=== PATIENT | male | born 1985 | race Caucasian/White ===

== ENCOUNTER 2025-01-10 19:30 | Emergency (ER) | payer OTHER, SELFPAY ==
[2025-01-10 20:02] VITALS: BP 128/89; PULSE 85; RESP 16; TEMP 37.2; O2SAT 98; BMI 22.8
[2025-01-10 20:42] VITALS: BP 110/56; PULSE 77; O2SAT 99
[2025-01-10 20:47] LABS: Basophils % 0.6 %; Eosinophils % 0.3 %; Hematocrit 40.4 % (37-53); Lymphocytes # 1.4 10^3/uL (0.8-4.8); Lymphocytes % 20.7 %; Mean Corpuscular HGB Conc 33.9 g/dL (30-55); Mean Corpuscular Hemoglobin 30.2 pg (27-33); Mean Corpuscular Volume 89.2 fl (82-101); Mean Platelet Volume 10.2 fL (7.4-10.4); Monocytes # 0.5 10^3/uL (0.2-0.9); Monocytes % 7.5 %; Neutrophils # 4.63 10^3/uL (1.8-7.7); Neutrophils % 70.6 %; Nucleated Red Blood Cells % 0 %; Platelet Count 199 10^3/cmm (157-399); Red Blood Count 4.53 10^6/uL (3.85-5.65); Red Cell Distribution Width 11.8 % (12.1-15.1); White Blood Count 6.56 10^3/uL (3.29-11.43)
[2025-01-10 21:02] LABS: Alanine Aminotransferase 18 U/L (0-41); Albumin Level 4.2 g/dL (3.5-5.2); Alkaline Phosphatase 68 U/L (40-130); Aspartate Amino Transferase 20 U/L (0-40); Blood Urea Nitrogen 13 mg/dL (6-20); C Reactive Protein 6.4 mg/L (0.0-4.9); Calcium 9.1 mg/dL (8.5-10.5); Carbon Dioxide 22 mmol/L (22-29); Chloride 105 mmol/L (98-107); Creatinine Clr Calc Pharmacy 87.9049; Globulin 3.3 g/dL (1.3-4.6); Glomerular Filtration Rate 74.9 mL/min (90-130); Glucose 100 mg/dL (65-115); Lipase 15 U/L (13-60); Osmolality Calculated 288 mOsm/kg (285-295); Sodium 139 mmol/L (136-145); Total Bilirubin 0.3 mg/dL (0.15-1.2); Total Protein 7.5 g/dL (6.6-8.7)
[2025-01-10 21:06] LABS: Bilirubin Urine Negative (Negative); Blood Urine Negative (Negative); Glucose Urine UA Negative (Normal); Ketones Urine Negative (Negative); Leukocyte Esterase Urine Negative (Negative); Nitrate Urine Negative (Negative); Protein Urine Negative (Negative); Specific Gravity, Urine 1.013 (1.005-1.030); Urine Appearance Clear (CLEAR); Urine Color Yellow (Yellow); pH Urine 7.5 (5-7)
--- NOTE | 2025-01-10 21:06 | CTR_ITS ---
PROCEDURE INFORMATION: Exam: CT Abdomen And Pelvis With Contrast Exam date and time: 01/10/2025 9:12 PM Age: 39 years old Clinical indication: Abdominal pain; C/O periumbilical/rlq pain with fever; Additional info: Periumbilical/rlq/r mid abd pain + subjective fever, ttp rlq TECHNIQUE: Imaging protocol: Computed tomography of the abdomen and pelvis with contrast. Radiation optimization: All CT scans at this facility use at least one of these dose optimization techniques: automated exposure control; mA and/or kV adjustment per patient size (includes targeted exams where dose is matched to clinical indication); or iterative reconstruction. Contrast material: OMNI 350; Contrast volume: 100 ml; Contrast route: INTRAVENOUS (IV); COMPARISON: No relevant prior studies available. RADIATION DOSE METRICS: Total DLP (mGy-cm): 424.31 FINDINGS: Lungs: Visualized lung bases are clear. Liver: The liver is unremarkable. Gallbladder and biliary ducts: The gallbladder is unremarkable. No biliary ductal dilatation. Pancreas: The pancreas is unremarkable. Spleen: The spleen is unremarkable. Adrenal glands: The adrenal glands are unremarkable. Kidneys and ureters: Multiple subcentimeter bilateral renal cysts. No hydronephrosis or hydroureter. No large renal stones. Stomach and bowel: No evidence of bowel obstruction. Multiple loops of small bowel are fluid-filled and nondilated. Appendix: The appendix is normal. Intraperitoneal space: No significant free fluid in the abdomen or pelvis. No extraluminal free air. Vasculature: Abdominal aorta and its major branches are within normal limits. No abdominal aortic aneurysm. Lymph nodes: No distinct pathologically enlarged lymphadenopathy. Urinary bladder: Mild thickening of the urinary bladder wall. Reproductive: Visualized reproductive structures are within normal limits. Bones/joints: No acute osseous findings. Soft tissues: Visualized superficial soft tissues are within normal limits. CT/CT abdomen pelvis w con* [id number] IMPRESSION: 1. Mild thickening of the urinary bladder wall. This may be incidental secondary to low-level of distension. Alternatively, this may indicate cystitis. 2. Multiple loops of small bowel are fluid-filled and nondilated. This is likely incidental but can be seen with mild nonspecific enteritis. COMMENTS: Consistent with the [employer]'s Incidental Findings Committee white paper (J Am Nano Radiol 2018): Any incidental renal lesion less than 1 cm or classified as too small to characterize, or any incidental cystic renal lesion characterized as simple-appearing, is likely benign. No follow-up imaging is recommended for these lesions per consensus recommendations based on imaging criteria.
--- NOTE | 2025-01-10 21:07 | ED_ITS ---
HPI - Abdominal Pain 2 General: Chief Complaint: Abdominal Pain Stated Complaint: fever, nausea, R side pain Time Seen by Provider: 01/10/25 20:11 History of Present Illness: 39-year-old male reports he has been sic k for about 8 or 9 days. He started having abdominal discomfort over the last 24 hours. This morning he had a sharp abdominal pain which he reports was actually in the right upper quadrant and moving down towards the right lower quadrant. He also reports some dysuria. He has a history of kidney stones but states he has not had any flank pain or hematuria. Patient explains that he has been sick all week with subjective fever, chills, sweats, runny nose, anorexia, headache. His work would not let him come back unless he was checked for COVID or flu. Then, with the abdominal pain, he started to get concerned there may be something else going on. He has not had any bowel movements in 2 days because he has not been eating or drinking much. Associated Symptoms: Reports chills, dysuria, fever(s) and nausea; Denies coffee ground emesis, constipation, diarrhea, hematemesis, syncope and vomiting Related Data Previous Rx's ?Medication ?Instructions ?Recorded dicyclomine 20 mg tablet 20 mg PO QID PRN abdominal p ain 01/10/25 #20 tabs ondansetron 4 mg disintegrating 4 mg PO Q6H PRN nausea and 01/10/25 tablet vomiting #14 tabs Allergies Allergy/AdvReac Type Severity Reaction Status Date / Time No Known Drug Allergies Allergy Unknown Verified 01/10/25 20:08 Review of Systems 2 General: Reports: 10 or more systems reviewed and unremarkable except in HPI and below Const: Reports: fever(s), chills, body aches, change in appetite and fatigue Eyes: Denies: change in vision ENMT: Denies: throat pain Card: Denies: chest pain, edema or syncope Resp: Denies: dyspnea, productive cough or hemoptysis GI: Reports: abdominal pain and nausea; Denies: vomiting, hematemesis, coffee ground emesis, diarrhea or constipation : Reports: dysuria; Denies: flank pain, difficulty urinating, urinary frequency, urinary urgency, urinary hesitancy, urinary dribbling, genital pain, genital lesions, testicular pain, testicular mass or scrotal swelling Musc: Reports: back pain (myalgias); Denies: neck pain, extremity pain or extremity swelling Skin/Breast: Denies: rash or erythema Neuro: Denies: headache(s), numbness in extremities, weakness in extremities, lack of coordination or difficulty walking Physical Exam 2 Const: COMMON NORMALS: no limitations, alert and well nourished EXAM LIMITATIONS: no altered mental status HENMT: COMMON NORMALS: normocephalic, atraumatic, external ears normal and Normal external nose present HEAD & SCALP: normocephalic and atraumatic N OSE: Normal external nose present EXTERNAL EAR: Yes external ears normal M OUTH: no muffled voice OTHER: + rhinorrhea and congestion Eye: COMMON NORMALS: EOMs intact bilaterally, conjunctivae normal and no scleral icterus CONJUNCTIVA: Yes conjunctivae normal Neck/C-Spine: COMMON NORMALS: no JVD GENERAL: Yes normal visual inspection and Yes trachea midline Resp: COMMON NORMALS: normal respiratory effort, No use of accessory muscles and clear to auscultation bilaterally AUSCULTATION: clear to auscultation bilaterally Cardio: COMMON NORMALS: no JVD, regular rate and regular rhythm RATE: r egular rate RHYTHM: regular rhythm GI: COMMON NORMALS: Soft to palpation and no masses PALPATION: Yes Soft to palpation, Yes Tenderness to palpation present (GI) Details: RLQ and other (periumbilical, RLQ; + heel tap), Yes Guarding due to palpation present (GI), No Palpable mass present, No Pulsatile mass present and No Ascites present Back/Pelvis: OTHER: Mild right CVA percussion ttp w/o guarding Extremity: COMMON NORMALS: normal to inspection Neuro: COMMON NORMALS: moves all extremities, no focal motor deficits and no sensory deficits noted SENSORIUM/ORIENTATION: Yes alert SPEECH: speech normal Psych: COMMON NORMALS: mental status grossly normal, Normal thought process present, cooperative, normal affect and speech normal SPEECH: Yes normal speech THOUGHT PROCESS: Normal thought process present Skin: COMMON NORMALS: no rashes or lesions noted, turgor normal and no jaundice GENERAL SKIN EXAM: no rashes or lesions noted and turgor normal Course 2 Vital Signs: Vital signs: Vital Signs Temperature 98.9 F 01/10/25 20:02 Pulse Rate 55 L 01/10/25 21:37 Respiratory Rate 16 01/10/25 21:29 Blood Pressure 114/68 03/23/25 21:37 Pulse Oximetry 99 01/10/25 21:37 Oxygen Delivery Me thod Room Air 01/10/25 21:37 MDM - Abdominal Pain Medical Decision Making 1. Patient has had anorexia, subjective fever, chills, runny nose, myalgias, headache. This sounds most likely to be a viral syndrome. 2. Patient has new right mid, periumbilical, right lower quadrant discomfort. He did have a positive heeltap sign and tenderness to palpation in the right lower quadrant. Patient also endorsed mild dysuria. The differential diagnosis would include appendicitis, diverticulitis, colitis, ascending UTI, pyelonephritis, mesenteric adenitis, constipation, other. It is entirely possible that the 8-1/2 days of constitutional symptoms above are unrelated to the abdominal pain. Discussed with patient. We are going to proceed with lab work including CBC, CMP, UA, and do a CT scan of the abdomen and pelvis with contrast. Update White blood cell count normal. Hemoglobin normal. Platelets normal CMP reassuring CRP only minimally elevated at 6.4 I have personally reviewed the CT scan of the abdomen and pelvis. The appendix is normal. No colitis or diverticulitis. Radiologist suggests mild thickening of the urinary bladder which could be unders distention or cystitis. Some fluid-filled nondilated small bowel may suggest enteritis. Since patient does have a viral syndrome this seems most likely. UA does not suggest infection. COVID and flu are neg. Patient reexamined. His abdominal pain seems to move around. This is in keeping with the enteritis and viral syndrome suggested by his workup. Patient can be discharged with Zofran, Bentyl, alternating Tylenol Motrin, instructions for oral fluid resuscitation. Lab Data 01/10/25 20:38 01/10/25 20:38 Labs/Radiology: Radiology Impressions Abdomen/Pelvis CT 01/10/25 21:06 IMPRESSION: 1. Mild thickening of the urinary bladder wall. This may be incidental secondary to low-level of distension. Alternatively, this may indicate cystitis. 2. Multiple loops of small bowel are fluid-filled and nondilated. This is likely incidental but can be seen with mild nonspecific enteritis. COMMENTS: Consistent with the [employer]'s Incidental Findings Committee white paper (J Am Nano Radiol 2018): Any incidental renal lesion less than 1 cm or classified as too small to characterize, or any incidental cystic renal lesion characterized as simple-appearing, is likely benign. No follow-up imaging is recommended for these lesions per consensus recommendations based on imaging criteria. Laboratory Results WBC 6.56 10^3/uL (3.29-11.43) 01/10/25 20:38 RBC 4.53 10^6/uL (3.85-5.65) 01/10/25 20:38 Hgb 13.70 g/dL (11.27-16.99) 01/10/25 20:38 Hct 40.4 % (37-53) 01/10/25 20:38 MCV 89.2 fl (82-101) 01/10/25 20: MCH 30.2 pg (27-33) 01/10/25 20: MCHC 33.9 g/dL (30-55) 01/10/25 20:38 RDW 11.8 % (12.1-15.1) L 01/10/25 20:38 Plt Count 199 10^3/cmm (157-399) 01/10/25 20:38 MPV 10.2 fL (7.4-10.4) 01/10/25 20:38 Neut % (Auto) 70.6 % 01/10/25 20:38 Lymph % (Auto) 20.7 % 01/10/25 20:38 [place] % (Auto) 7.5 % 01/10/25 20:38 Eos % (Auto) 0.3 % 01/10/25 20:38 Baso % (Auto) 0.6 % 01/10/25 20:38 Neut # (Auto) 4.63 10^3/uL (1.8-7.7) 01/10/25 20:38 Lymph # (Auto) 1.4 10^3/uL (0.8-4.8) 01/10/25 20:38 [place] # (Auto) 0.5 10^3/uL (0.2-0.9) 01/10/25 20:38 Eos # (Auto) 0.0 10^3/uL (0.0-0.8) 01/10/25 20:38 Baso # (Auto) 0.0 10^3/uL (0.0-0.1) 01/10/25 20:38 Nucleated RBC % (auto) 0 % 01/10/25 20:38 Nucleated RBCs # 0.0 /100WBC 01/10/25 20:38 Sodium 139 mmol/L (136-145) 01/10/25 20:38 Potassium 3.8 mmol/L (3.5-5.1) 01/10/25 20:38 Chloride 105 mmol/L (98-107) 01/10/25 20:38 Carbon Dioxide 22 mmol/L (22-29) 01/10/25 20:38 Anion Gap 15.8 (5-19) 01/10/25 20:38 BUN 13 mg/dL (6-20) 01/10/25 20:38 Creatinine 1.1 mg/dL (0.7-1.2) 01/10/25 20:38 GFR Calculation 74.9 mL/min (90-130) L 01/10/25 20:38 Glucose 100 mg/dL (65-115) 01/10/25 20:38 Calculated Osmolality 288 mOsm/kg (285-295) 01/10/25 20:38 Calcium 9.1 mg/dL (8.5-10.5) 01/10/25 20:38 Total Bilirubin 0.3 mg/dL (0.15-1.2) 01/10/25 20:38 AST 20 U/L (0-40) 01/10/25 20:38 ALT 18 U/L (0-41) 01/10/25 20:38 Alkaline Phosphatase 68 U/L (40-130) 01/10/25 20:38 C-Reactive Protein 6.4 mg/L (0.0-4.9) H 01/10/25 20:38 Total Protein 7.5 g/dL (6.6-8.7) 01/10/25 20:38 Albumin 4.2 g/dL (3.5-5.2) 01/10/25 20:38 Globulin 3.3 g/dL (1.3-4.6) 01/10/25 20:38 Lipase 15 U/L (13-60) 01/10/25 20:38 Urine Color Yellow (Yellow) 01/10/25 20:40 Urine Appearance Clear (CLEAR) 01/10/25 20:40 Urine pH 7.5 (5-7) 01/10/25 20:40 Ur Specific [place] 1.013 (1.005-1.030) 01/10/25 20:40 Urine Protein Negative (Negative) 01/10/25 20:40 Urine Glucose (UA) Negative (Normal) 01/10/25 20:40 Urine Ketones Negative (Negative) 01/10/25 20:40 Urine Blood Negative (Negative) 01/10/25 20:40 Urine Nitrate Negative (Negative) 01/10/25 20:40 Urine Bilirubin Negative (Negative) 01/10/25 20:40 Urine Urobilinogen 1.0 mg/dL (Negative) 01/10/25 20:40 Ur Leukocyte Esterase Negative (Negative) 01/10/25 20:40 Urine RBC 0-2 /hpf (0-2) 01/10/25 20:40 Urine WBC 0-5 /hpf (0-5) 01/10/25 20:40 Ur Squamous Epith Cells 0-5 /hpf (0-5) 01/10/25 20:40 Amorphous Sediment Not Reportable 01/10/25 20:40 Urine Bacteria None seen /hpf (NONE) 01/10/25 20:40 Hyaline Casts 0-4 /lpf H 01/10/25 20:40 Influenza A (PCR) Negative (Negative) 01/10/25 21:30 Influenza Type B (PCR) Negative (Negative) 01/10/25 21:30 RSV (PCR) Negative (Negative) 01/10/25 21:30 SARS-CoV-2 (PCR) Negative (Negative) 01/10/25 21:30 All radiology interpretation(s) finalized by discharge Discharge Plan Discharge Patient Disposition: Home Clinical Impression: Acute viral syndrome, Enteritis Condition: Stable Prescriptions: New dicyclomine 20 mg tablet 20 mg PO QID PRN (Reason: abdominal pain) Qty: 20 0RF ondansetron 4 mg tablet,disintegrating 4 mg PO Q6H PRN (Reason: nausea and vomiting) Qty: 14 0RF Discharge Orders: Discharge ED (Routine); Ordered 01/10/25 Ordered By: Venkatesh Potter Discharge Diet: Advance as tolerated Discharge Activity: Increase activity as tolerated Patient Instructions: Pain Management Activity Restrictions/Additional Instructions: Your blood work was reassuring. You do not have a urinary tract infection. COVID and FLU are NEGATIVE. CT scan of your abdomen and pelvis showed that she may have some enteritis which is a nonspecific term for inflammation and excess fluid being produced in the small intestines. This can cause intermittent abdominal pain and cramping with nausea. The most common cause of enteritis is a viral syndrome. You have had headache, fatigue, poor appetite, runny nose and congestion which is also suggestive of a viral illness. Please make sure that you are drinking at least 72 ounces of clear fluid daily. You may alternate Tylenol 500 mg with ibuprofen 400 mg every 3 hours for your symptoms. You have been prescribed some Bentyl which can help with abdominal cramping and Zofran which can help with nausea. Call your doctor or return to the emergency department if you are having new or worsening symptoms. Print Language: Pashto Coding Level of Care Code ED Balancer Scale for Chip Wilks
[2025-01-10 21:09] LABS: Anion Gap 15.8 (5-19); Potassium 3.8 mmol/L (3.5-5.1)
[2025-01-10 21:11] LABS: Add Urine Microscopic? YES; Bacteria Urine None Seen /hpf; Hyaline Casts Urine 0-4 /lpf; RBC Urine 0-2 /hpf (0-2); Squamous Epithelial Cell Urine 0-5 /hpf (0-5); WBC Urine 0-5 /hpf (0-5)
[2025-01-10] MEDS: iohexol 350 mg/mL 500 mL Btl (per mL) IV (21:16)
[2025-01-10] MEDS: sodium chloride 0.9% 1,000 ML 999 ML IV (21:27)
[2025-01-10 21:29] VITALS: RESP 16; O2SAT 100
[2025-01-10] MEDS: morphine 4 mg/mL SDV 1 mL IVP (21:29)
[2025-01-10 21:37] VITALS: BP 114/68; PULSE 55; O2SAT 99
[2025-01-10 22:16] LABS: Influenza A NEGATIVE (Negative); Influenza B NEGATIVE (Negative); Respiratory Syncytial Virus Ce NEGATIVE (Negative); SARS-CoV-2 PCR NEGATIVE (Negative)
[2025-01-10 22:32] VITALS: BP 118/73; PULSE 61; O2SAT 97
== END 2025-01-10 22:33 | disposition home or self-care (01) ==
PROVIDERS: Emergency Provider Emergency Medicine
DX: B34.9 Viral infection, unspecified (principal); K52.9 Noninfective gastroenteritis and colitis, unspecified; Z11.52 Encounter for screening for COVID-19
CPT/HCPCS: 74177; 80053; 81001; 83690; 85025; 86140; 87637; 96361; 96374; 99285; J2270; J7030

== ENCOUNTER 2025-04-21 04:18 | Emergency (ER) | payer OTHER, SELFPAY ==
[2025-04-21 04:19] VITALS: BP 124/73; PULSE 60; RESP 16; TEMP 36.8; O2SAT 100; BMI 24.3
--- OUTSIDE RECORDS SUMMARY | 2025-04-21 04:27 | XMS_ITS | Clinical Summary ---
Author Organization [facility] Address [address] [place] [address] Care Team Providers Care Senior Analytic Consultant Name Role Phone Tatiana Whaley Primary Care Provider Allergies No known active allergies Medications meloxicam (Mobic) 7.5 mg tabletIndicatio ns:Kidney stone on left side Take 2 Tablets (15 mg) by mouth 1 time daily as needed for Pain. 30 Tablet 4 03/16/2022 Active ketoconazole (NIZORAL) 2 % CreamIndication s:Tinea corporis Apply to affected area daily. 15 Gram 1 04/06/2022 Active Active Problems No known active problems Family History Medical History Relation Name Comments Healthy Brother Healthy Father Healthy Mother Cancer Paternal Grandfather Healthy Sister Relation Name Status Comments Brother Alive Father Alive Mother Alive Paternal Grandfather Sister Alive Social History Tobacco Use Types Packs/Day Years Used Date Smoking Tobacco: Every Day Cigarettes Smokeless Tobacco: Former Alcohol Use Standard Drinks/Week Comments No 0 (1 standard drink = 0.6 oz pur e alcohol) Sex and Gender Information Value Date Recorded Sex Assigned at Not on file Legal Sex Male 9:12 AM [employer] Gender Identity Not on file Sexual Orientation Not on file Last Filed Vital Signs Vital Sign Reading Time Taken Comments Blood Pressure 130/68 03/14/2022 2:20 PM CDT Pulse 89 03/14/2022 2:20 PM CDT Temperature 37.2 C (99 F) 03/14/2022 2:20 PM CDT Respiratory Rate 18 03/14/2022 2:20 PM CDT Oxygen Saturation 96% 03/14/2022 2:20 PM CDT Inhaled Oxygen Concentration - - Weight 73 kg (161 lb) 03/14/2022 2:20 PM CDT Height 172.7 cm (5' 8 ) 03/14/2022 2:20 PM CDT Body Mass Index 24.48 03/14/2022 2:20 PM CDT Plan of Treatment Health Maintenance Due Date Last Done Comments DTAP/TDAP/TD VACCINES (1 - Tdap) 2005 HEPATITIS B VACCINES (1 of 3 - 19+ 3-dose series) 2005 Preventative Visit- Commercial 10/21/2024 02/21/2021 INFLUENZA VACCINE (#1) 2025 , 02/21/2021 HPV VACCINES Aged Out No longer eligi ble based on patient's age to complete this topic Insurance [facility] BLUE ACCESS/TRUE BLUE PPO Care Teams Senior Analytic Consultant Relationship Specialty Start Date End Date Tatiana Whaley DO [address] [place] [id number] PCP - General Family Practice 07/16/18
--- OUTSIDE RECORDS SUMMARY | 2025-04-21 04:27 | XMS_ITS | Clinical Summary ---
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 28.4 Gram 1 02/21/2021 Active Active Problems No known active problems Family History Medical History Relation Name Comments Healthy Brother Healthy Father Healthy Mother Cancer Paternal Grandfather Healthy Sister Relation Name Status Comments Brother Alive Father Alive Mother Alive Paternal Grandfather Sister Alive Social History Tobacco Use Types Packs/Day Years Used Date Smoking Tobacco: Former Cigarettes 0.5 16 Smokeless Tobacco: Former Alcohol Use Standard Drinks/Week Comments No 0 (1 standard drink = 0.6 oz pur e alcohol) Sex and Gender Information Value Date Recorded Sex Assigned at Not on file Legal Sex Male 12:28 PM CDT Gender Identity Not on file Sexual Orientation Not on file Last Filed Vital Signs Vital Sign Reading Time Taken Comments Blood Pressure 120/80 02/21/2021 10:10 AM CDT Pulse 92 02/21/2021 10:10 AM CDT Temperature 37.1 C (98.8 F) 02/21/2021 10:10 AM CDT Respiratory Rate 18 04/01/2020 3:18 PM CDT Oxygen Saturation 98% 02/21/2021 10:10 AM CDT Inhaled Oxygen Concentration - - Weight 91.2 kg (201 lb) 02/21/2021 10:10 AM CDT Height 172.7 cm (5' 8 ) 02/21/2021 10:10 AM CDT Body Mass Index 30.56 02/21/2021 10:10 AM CDT Plan of Treatment Health Maintenance Due Date Last Done Comments DTAP/TDAP/TD VACCINES (1 - Tdap) 2005 HEPATITIS B VACCINES (1 of 3 - 19+ 3-dose series) 2005 INFLUENZA VACCINE (#1) 2024 1, 02/21/2021 Preventative Visit- Commercial 10/21/2024 02/21/2021 HPV VACCINES Aged Out No longer eligi ble based on patient's age to complete this topic Insurance [facility] Advance Directives For more information, please contact: [phone] * Full Code (Latest Code Status on File) Date Activated Date Inactivated Comments 02/22/2020 9:59 AM 02/22/2020 12:45 PM Care Teams Flexographic Printing Machinist Relationship Specialty Start Date End Date Tatiana Whaley DO [address] [place] [id number] PCP - General Family Practice 07/16/18
--- OUTSIDE RECORDS SUMMARY | 2025-04-21 04:27 | XMS_ITS | Encounter Summary ---
Author Organization [facility] Address [address] [place] [address] Care Team Providers Care Evaluation Assistant Name Role Phone Tatiana Whaley Primary Care Provider Encounter Details Date Type Department Care Team (Late st Contact Info) Description 03/14/[address] 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 No / Unsure 03/16/2022 9:25 AM CDT documented as of this encounter Plan of Treatment Not on file documented as of this encounter Procedures Procedure Name Priority Date/Time Associated Diagnosis Comments CBC WITH DIFFERENTIAL Stat 03/14/2022 5:35 PM CDT COMPREHENSIVE METABOLIC PANEL Stat 03/14/2022 5:35 PM CDT documented in this encounter Results * CBC WITH DIFFERENTIAL (03/14/2022 5:35 PM CDT) WBC 6.6 4.2 - 9.1 K/uL 03/14/2022 5:52 PM [facility] RBC 4.63 4.63 - 6.08 M/uL 03/14/2022 5:52 PM [facility] HEMOGLOBIN 14.1 13.7 - 17.5 g/dL 03/14/2022 5:52 PM CDT [facility] HEMATOCRIT 41.3 40.1 - 51.0 % 03/14/2022 5:52 PM [facility] MCV 89.2 79.0 - 92.2 fL 03/14/2022 5:52 PM T [facility] MCH 30.5 25.7 - 32.2 pg 03/14/2022 5:52 PM [facility] MCHC 34.1 32.3 - 36.5 g/dL 03/14/2022 5:52 PM [facility] RDW 11.8 11.0 - 14.5 % 03/14/2022 5:52 PM [facility] RDW-STDEV 38.3 36.9 - 56.9 fL 03/14/2022 5:52 PM [facility] PLATELETS 225 130 - 400 K/uL 03/14/2022 5:52 PM [facility] MPV 10.4 10.0 - 14.8 fL 03/14/2022 5:52 PM [facility] NEUTROPHILS 64 34 - 68 % 03/14/2022 5:52 PM [facility] LYMPHOCYTES 29 22 - 53 % 03/14/2022 5:52 PM [facility] MONOCYTES 6 5 - 12 % 03/14/2022 5:52 PM [facility] EOSINOPHILS 1 1 - 7 % 03/14/2022 5:52 PM [facility] BASOPHILS 1 0 - 1 % 03/14/2022 5:52 PM [facility] IMMATURE GRANULOCYTES 0 % 03/14/2022 5:52 PM CDT [facility] NEUTROPHIL ABSOLUTE 4.21 1.78 - 5.38 K/uL 03/14/2022 5:52 PM CDT [facility] LYMPHOCYTE ABSOLUTE 1.90 1.20 - 3.40 K/uL 03/14/2022 5:52 PM CDT [facility] MONOCYTE ABSOLUTE 0.39 0.30 - 0.82 K/uL 03/14/2022 5:52 PM CDT [facility] EOSINOPHIL ABSOLUTE 0.06 0.04 - 0.54 K/uL 03/14/2022 5:52 PM CDT [facility] BASOPHILS ABSOLUTE 0.03 0.01 - 0.08 K/uL 03/14/2022 5:52 PM CDT [facility] IMMATURE GRANULOCYTES ABSOLUTE 0.02 K/uL 03/14/2022 5:52 PM [facility] Blood BLOOD SPECIMEN / Unknown Venipuncture / Unknown 03/14/2022 5:35 PM CDT 03/14/2022 5:43 PM CDT us Soledad Leong PRINTING SCREEN ASSEMBLER HEMATOLOGY ORDERABLES Karuna ho Result [facility] CLIA # [id number] [address] [place] [id number] * (ABNORMAL) COMPREHENSIVE METABOLIC PANEL (03/14/2022 5:35 PM CDT) SODIUM 141 136 - 145 mmol/L 03/14/2022 6:03 PM CDT [facility] POTASSIUM 3.9 3.5 - 5.1 mmol/L 03/14/2022 6:03 PM [facility] CHLORIDE 105 98 - 107 mmol/L 03/14/2022 6:03 PM [facility] CO2 27 22 - 29 mmol/L 03/14/2022 6:03 PM [facility] CALCIUM 9.3 8.6 - 10.0 mg/dL 03/14/2022 6:03 PM [facility] BUN 8 6 - 20 mg/dL 03/14/2022 6:03 PM [facility] CREATININE 1.19(H) 0.67 - 1.17 mg/dL 03/14/2022 6:03 PM [facility] GLUCOSE 112(H) 74 - 99 mg/dL 03/14/2022 6:03 PM [facility] TOTAL PROTEIN 7.1 6.6 - 8.7 g/dL 03/14/2022 6:03 PM [facility] ALBUMIN 4.3 3.5 - 5.2 g/dL 03/14/2022 6:03 PM [facility] BILIRUBIN TOTAL 0.2 <=1.2 mg/dL 03/14/2022 6:03 PM [facility] ALKALINE PHOSPHATASE 98 40 - 129 U/L 03/14/2022 6:03 PM [facility] AST 16 10 - 50 U/L 03/14/2022 6:03 PM [facility] ALT 13 10 - 50 U/L 03/14/2022 6:03 PM [facility] GFR >60 >=60 mL/min/1.7 3 sq meter 03/14/2022 6:03 PM [facility] Comment:eGFR calculated with 2020 CKD-EPI equation. Vegetarian diet, extremely high or low muscle mass, and may affect results. Cystatin C with Glomerular Filtration Rate is a suitable alternative for these patients. ANION GAP 9(L) 12 - 20 mmol/L 03/14/2022 6:03 PM [facility] Blood BLOOD SPECIMEN / Unknown Venipuncture / Unknown 03/14/2022 5:35 PM CDT 03/14/2022 5:43 PM CDT Soledad Leong PRINTING SCREEN ASSEMBLER CHEMISTRY ORDERABLES Final Result [facility] CLIA # [id number] [address] [place] [id number] documented in this encounter Visit Diagnoses Diagnosis Right lower quadrant pain Abdominal pain, right lower quadrant documented in this encounter Care Teams Evaluation Assistant Relationship Specialty Start Date End Date Tatiana Whaley DO [address] [place] [id number] PCP - General Family Practice 07/16/18 documented as of this encounter
[2025-04-21] MEDS: tetanus-dipt-pertussis 0.5 mL SDV IM (04:36)
--- NOTE | 2025-04-21 04:39 | PC.NURSE ---
CAT nurses states they do not need alcohol or drug screening.
[2025-04-21] MEDS: lidocaine-epi 1% 20 mL INJ 5 ML INJECTION (05:02)
--- NOTE | 2025-04-21 05:09 | W.ED.WOUNDLC ---
HPI - Wound/Laceration General: Chief Complaint: Wound/Laceration Stated Complaint: LEFT LEG LAC Time Seen by Provider: 04/21/25 04:22 History of Present Illness: Adult male presented after sustaining a laceration to the inside of his leg when a 50-foot metal pole, wrapped in hydraulic hose, struck him at work. He reports being able to walk on the leg with only localized tenderness at the site of injury, and no significant pain around the area. He denies involvement of the knee joint and has taken a few steps without major difficulty. No other complaints were mentioned. Related Data Previous Rx's ?Medication ?Instructions ?Recorded dicyclomine 20 mg tablet 20 mg PO QID PRN abdominal pain 01/10/25 #20 tabs ondansetron 4 mg disintegrating 4 mg PO Q6H PRN nausea and 01/10/25 tablet vomiting #14 tabs Allergies Allergy/AdvReac Type Severity Reaction Status Date / Time No Known Drug Allergies Allergy Unknown Verified 01/10/25 20:08 Physical Exam Const: COMMON NORMALS: no acute distress, patient oriented x3 and alert HENMT: COMMON NORMALS: normocephalic and atraumatic HEAD & SCALP: normocephalic and atraumatic Eye: COMMON NORMALS: Equal, round and reactive pupils present, EOMs intact bilaterally and no scleral icterus PUPIL: Yes Equal, round and reactive pupils present Resp: COMMON NORMALS: normal respiratory effort and No retractions Cardio: COMMON NORMALS: regular rate, regular rhythm and No murmurs present (Cardio) RATE: regular rate RHYTHM: regular rhythm GI: COMMON NORMALS: Normal to inspection, nondistended, normoactive bowel sounds present, Soft to palpation and non-tender PALPATION: Yes Soft to palpation Neuro: COMMON NORMALS: patient oriented x3 SENSORIUM/ORIENTATION: Yes alert Skin: OTHER: 3 cm Z shaped laceration of the left medial knee overlying the medial condyle with no active bleeding. Laceration extends to the level of the subcutaneous fat. No nerve, artery, vein, or muscle involvement Procedures Laceration Laceration 1: Site: lower extremity Side (If applicable): left Size (cm): 3.5 Description: irregular Depth: simple, single layer Local Anesthetic: lidocaine 1% and with epi Amount of anesthesia used (mL): 4 Pre-repair: wound explored, irrigated extensively, deep structures intact and wound margins revised Skin layer closed with: nylon Size (cm): 4-0 Number of sutures: 6 Technique: simple, interrupted Course Vital Signs: Vital signs: Vital Signs Temperature 98.2 F 04/21/25 04:19 Pulse Rate 60 04/21/25 04:19 Respiratory Rate 16 04/21/25 04:19 Blood Pressure 124/73 04/21/25 04:19 Pulse Oximetry 100 04/21/25 04:19 Oxygen Delivery Me thod Room Air 04/21/25 04:19 MDM - Wound/Laceration Medical Decision Making Laceration was thoroughly cleansed and then closed using simple interrupted sutures with excellent approximation of the tissues. A bandage was placed. He will be discharged in stable condition with follow-up to occupational health in 10 days for suture removal. Tetanus was updated. He shows good understanding and agrees with plan. No radiology studies performed this visit Discharge Plan Discharge Patient Disposition: Home Clinical Impression: Laceration Condition: Stable Prescriptions: No Action dicyclomine 20 mg tablet 20 mg PO QID PRN (Reason: abdominal pain) Qty: 20 0RF ondansetron 4 mg tablet,disintegrating 4 mg PO Q6H PRN (Reason: nausea and vomiting) Qty: 14 0RF Discharge Orders: Discharge ED (Routine); Ordered 04/21/25 Ordered By: Emerson Holloway Discharge Diet: Usual diet Discharge Activity: Increase activity as tolerated Patient Instructions: Laceration (ED), Patient Portal & Jeanne Instructions Activity Restrictions/Additional Instructions: Please have your sutures removed in 10 days. Please keep the area clean and dry for at least the next 48 hours after which time you can gently wash the area with soap and water or shower and get it wet. Please do not submerge your leg in a bathtub or pool or [place] or river until wound has fully healed. 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
[2025-04-21 05:32] VITALS: BP 121/97; PULSE 57; O2SAT 98
== END 2025-04-21 05:00 | disposition home or self-care (01) ==
PROVIDERS: Emergency Provider Student in an Organized Health Care Education/Training Program
DX: S81.812A Laceration without foreign body, left lower leg, initial encounter (principal); W22.8XXA Striking against or struck by other objects, initial encounter
CPT/HCPCS: 12002; 90471; 90715; 99283; J9999